=== PATIENT | female | born 1985 | race Caucasian/White ===

== ENCOUNTER 2022-04-11 07:39 | Emergency (ER) | payer BC ==
[~2022-04-11] VITALS: Ht 175.3 cm; Wt 106.6 kg
--- NOTE | 2022-04-11 08:10 | NUR ---
RECEIVED PT FROM JESSIE GUERRIER. ASSUMED CARE. PT HAS C/O HIGH BLOOD SUGAR, LAST NIGHT IT WAS IN THE 200s. PT STATES SHE HAS A HISTORY OF HYPO AND HYPERTHYROIDISM AND FIBERMYALGIA. PT IS AAOX4, STATES SHE FEELS DIZZY. RESP E/U. ON R/A. DENIES N/V/D/C. DENIES S/S OF HYPER OR HYPO BLOOD SUGAR. BS PRESENTLY 75. PT GIVEN JUICE. DENIES PAIN. SIDERAILS UP X2.
--- NOTE | 2022-04-11 08:10 | NUR ---
Patient to ER bed 05 to gown for evaluation. Side rails up. Report given to JESSIE FORD.
[2022-04-11 08:15] VITALS: BP_SYST 155
--- NOTE | 2022-04-11 08:20 | NUR ---
DR. WORLEY AT BEDSIDE TO ASSESS PT. PT BS WILL BE MONITORED AND LABS WILL BE COMPLETED. PT WILL BE PRESCRIBED SLEEP AID DUE TO LACK OF SLEEP.
[2022-04-11] MEDS ORDERED: DIPH25CA83 PO (08:58)
[2022-04-11] MEDS ORDERED: AMIT50TA3 PO (08:58)
[2022-04-11] MEDS ORDERED: [UNRECOGNIZED DRUG - OTHER] PO (08:58)
[2022-04-11] MEDS ORDERED: OMEP20CA15 PO (08:58)
[2022-04-11] MEDS ORDERED: NUC50 PO (08:58)
[2022-04-11] MEDS ORDERED: ELMIRON PO (08:58)
[2022-04-11] MEDS ORDERED: PROPANOLOL PO ×2 (08:58)
[2022-04-11] MEDS ORDERED: GUAI-723 PO (08:58)
[2022-04-11] MEDS ORDERED: PRAZ1CAP2 PO (08:58)
[2022-04-11] MEDS ORDERED: LEVO137C2 PO (09:01)
[2022-04-11] MEDS ORDERED: LIP10 PO (09:01)
[2022-04-11] MEDS ORDERED: VITD2000 PO (09:01)
[2022-04-11] MEDS ORDERED: ZOLP6.2539 PO (09:08)
[2022-04-11 09:23] LABS: CALCIUM 8.5 mg/dL (8.4-11.0); CREATININE 0.88 mg/dL (0.55-1.30); POTASSIUM 3.7 mmol/L (3.5-5.1)
[2022-04-11 09:35] LABS: BASOPHILS % (AUTO) 0.6 % (0.0-2.0); EOSINOPHILS # (AUTO) 0.1 K/uL (0.0-0.4); EOSINOPHILS % (AUTO) 0.9 % (0.0-4.0); HEMATOCRIT 30.4 % (36-48); HEMOGLOBIN 9.9 g/dL (12.0-16.0); LYMPHOCYTES # (AUTO) 1.4 K/uL (1.0-5.5); LYMPHOCYTES % (AUTO) 24.7 % (20.5-51.5); MEAN CORPUSCULAR HEMOGLOBIN 23 pg (27-31); MEAN CORPUSCULAR HGB CONC 33 % (32-36); MEAN CORPUSCULAR VOLUME 70 fL (79.0-98.0); MONOCYTES # (AUTO) 0.4 K/uL (0.0-1.0); MONOCYTES % (AUTO) 7.2 % (1.7-9.3); NEUTROPHILS # (AUTO) 3.9 K/uL (1.8-7.7); NEUTROPHILS % (AUTO) 66.6 % (40.0-70.0); PLATELET COUNT (AUTO) 235 K/uL (130-430); RED BLOOD CELL COUNT(AUTO) 4.37 MIL/uL (4.2-6.2); RED CELL DISTRIBUTION WIDTH 18.2 % (9.0-15.0); WHITE BLOOD COUNT (AUTO) 5.8 K/uL (4.8-10.8)
--- NOTE | 2022-04-11 10:25 | NUR ---
Patient given written and verbal discharge instructions and verbalizes understanding. ER MD discussed with patient the results and treatment provided. Patient in stable condition. ID arm band removed. Rx of ZOLPIDEM, TARTATE given. Patient educated on pain management and to follow up with PMD. Pain Scale 0/10. Opportunity for questions provided and answered. Medication side effect fact sheet provided.
[2022-04-11 10:57] VITALS: BP_SYST 145
== END 2022-04-11 10:25 | disposition home or self-care (01) ==
LOC: SED 07:39
DX: F41.9 Anxiety disorder, unspecified (principal); G47.00 Insomnia, unspecified; I10 Essential (primary) hypertension; R53.1 Weakness; R42 Dizziness and giddiness; Z88.1 Allergy status to other antibiotic agents; Z88.2 Allergy status to sulfonamides; Z79.899 Other long term (current) drug therapy
CPT/HCPCS: 36415; 80048; 82962; 85025; 99283

== ENCOUNTER 2022-08-22 22:53 | Emergency (ER) | payer BC ==
[~2022-08-22] VITALS: Ht 175.3 cm; Wt 97.5 kg
[~2022-08-22 22:53] MED LIST: AMIT50TA3 PO; DIPH25CA83 PO; ELMIRON PO; GUAI-723 PO; LEVO137C2 PO; LIP10 PO; NUC50 PO; OMEP20CA15 PO; PRAZ1CAP2 PO; PROPANOLOL PO; VITD2000 PO; ZOLP6.2539 PO; [UNRECOGNIZED DRUG - OTHER] PO
[2022-08-22 22:55] VITALS: BP_SYST 180
--- NOTE | 2022-08-22 23:00 | NUR ---
Patient triaged and placed in waiting room. VSS and patient appears in no acute distress at this time. Accompanied by MOTHER, awaiting available bed, and MD notified of need for MSE.
--- NOTE | 2022-08-22 23:12 | NUR ---
PATIENT BROUGHT IN FROM COMPLAINING OFHIGH BLOOD PRESSURE OF 181/104 AT HOME WITH A BRIEF EPISODE OF DIZZINESS AND CHEST DISCOMFORT. HX OF ENDOMETRIOSIS, FIBROMYALGIA, IRON DEFICIENCY ANEMIA, HYPOTHYROIDISM.
[2022-08-23 00:12] LABS: BASOPHILS % (AUTO) 0.6 % (0.0-2.0); EOSINOPHILS # (AUTO) 0.1 K/uL (0.0-0.4); HEMATOCRIT 36.2 % (36-48); HEMOGLOBIN 11.4 g/dL (12.0-16.0); LYMPHOCYTES # (AUTO) 1.6 K/uL (1.0-5.5); LYMPHOCYTES % (AUTO) 31.8 % (20.5-51.5); MEAN CORPUSCULAR HEMOGLOBIN 23 pg (27-31); MEAN CORPUSCULAR HGB CONC 31 % (32-36); MEAN CORPUSCULAR VOLUME 73 fL (79.0-98.0); MONOCYTES # (AUTO) 0.6 K/uL (0.0-1.0); MONOCYTES % (AUTO) 11.1 % (1.7-9.3); NEUTROPHILS # (AUTO) 2.8 K/uL (1.8-7.7); NEUTROPHILS % (AUTO) 54.5 % (40.0-70.0); PLATELET COUNT (AUTO) 244 K/uL (130-430); RED CELL DISTRIBUTION WIDTH 19.3 % (9.0-15.0); WHITE BLOOD COUNT (AUTO) 5.2 K/uL (4.8-10.8)
[2022-08-23 00:17] LABS: ANION GAP 9 (5-15); CALCIUM 9.3 mg/dL (8.4-11.0); CHLORIDE 107 mmol/L (98-107); CREATININE 1.05 mg/dL (0.55-1.30); GLUCOSE 102 mg/dL (70-99); UREA NITROGEN, BLOOD 5 mg/dL (8-21)
[2022-08-23 00:24] LABS: ALANINE AMINOTRANSFERASE 53 U/L (12-78); ALBUMIN 3.8 g/dL (3.4-4.8); ASPARTATE AMINOTRANSFERASE 25 U/L (10-37); TOTAL BILIRUBIN 0.5 mg/dL (0.0-1.0)
[2022-08-23 00:36] LABS: GFR AFRICAN AMERICAN 75 mL/min (>90)
--- NOTE | 2022-08-23 04:15 | NUR ---
ER examining patient in the triage room.
[2022-08-23] MEDS ORDERED: LOSARTAN POTASSIUM 25 MG TABLET PO ONE (05:30)
[2022-08-23] MEDS ORDERED: LISI-209 PO (05:51)
[2022-08-23] MEDS ORDERED: LOSARTAN POTASSIUM 25 MG TABLET ONE (06:13)
--- NOTE | 2022-08-23 06:55 | NUR ---
Dr Jovel made aware pt BP .Per Dr Jovel ok to discharge pt home.
--- NOTE | 2022-08-23 07:00 | NUR ---
Patient given written and verbal discharge instructions and verbalizes understanding. ER MD discussed with patient the results and treatment provided. Patient in stable condition. ID arm band removed. Rx of LISINORIL given. Patient educated on pain management and to follow up with PMD. Pain Scale 0/10. Opportunity for questions provided and answered. Medication side effect fact sheet provided.
[2022-08-23 07:01] VITALS: BP_SYST 155
== END 2022-08-23 07:01 | disposition home or self-care (01) ==
LOC: SED 22:53
DX: I10 Essential (primary) hypertension (principal); F41.9 Anxiety disorder, unspecified; R07.9 Chest pain, unspecified; R42 Dizziness and giddiness; Z88.0 Allergy status to penicillin; Z88.1 Allergy status to other antibiotic agents; Z88.2 Allergy status to sulfonamides; Z79.899 Other long term (current) drug therapy
CPT/HCPCS: 36415; 71045; 80053; 83880; 84484; 85025; 99284